=== PATIENT | female | born 1985 | race Caucasian/White ===

== ENCOUNTER 2019-09-09 13:42 | Emergency (ER) | payer BC ==
[~2019-09-09] VITALS: Ht 162.6 cm; Wt 87.0 kg
[2019-09-09] MEDS ORDERED: KETOROLAC 30 MG/1 ML ONE (14:15)
--- NOTE | 2019-09-09 14:25 | NUR ---
TO ED FROM HOME C/O NAUSEA/VOMIT/CHILLS/FLANK PAIN/INCR FREQUENCY. DENEIS HEMATURIA. A/O X4 GCS 15. ERMD IN ROOM FOR EVAL. LABS/UA SENT. MEDS PER OCT. CALL MACK IN REACH.
[2019-09-09] MEDS ORDERED: KETOROLAC 30 MG/1 ML IVPush ONE (14:30)
[2019-09-09] MEDS ORDERED: SODIUM CHLORIDE 0.9% 1,000ML IVBOLUS ONE (14:30)
[2019-09-09 14:32] LABS: BASOPHILS # (AUTO) 0.01 x10^3/uL (0-0.1); BASOPHILS % (AUTO) 0 % (0-1); EOSINOPHILS # (AUTO) 0.07 x10^3/uL (0-0.4); EOSINOPHILS % (AUTO) 1 % (1-7); LYMPHOCYTES # (AUTO) 1.76 x10^3/uL (1-3.4); LYMPHOCYTES % (AUTO) 16 % (22-44); MD NO; MEAN CORPUSCULAR HEMOGLOBIN 30.6 pg (27.0-34.8); MEAN CORPUSCULAR HGB CONC 33.6 g/dL (32.4-35.8); MEAN CORPUSCULAR VOLUME 91.1 fL (80-100); MEAN PLATELET VOLUME 7.4 fL (7.4-10.4); MONOCYTES % (AUTO) 9 % (2-9); NEUTROPHILS # (AUTO) 8.12 x10^3/uL (1.8-6.8); NEUTROPHILS % (AUTO) 74 % (42-75); PLATELET COUNT 208 x10^3/uL (130-400); RED BLOOD COUNT 4.63 x10^6/uL (3.82-5.3); RED CELL DISTRIBUTION WIDTH 13.1 % (9.6-15.2)
[2019-09-09 14:35] LABS: MICROSCOPIC AUTO
[2019-09-09 14:40] LABS: ALBUMIN 3.2 g/dL (3.4-5.0); ANION GAP 6 mmol/L (5-15); CALCIUM 8.3 mg/dL (8.5-10.1); CHLORIDE 108 mmol/L (98-107)
[2019-09-09 14:41] LABS: CULTURE INDICATED? YES
[2019-09-09 14:43] LABS: ALANINE AMINOTRANSFERASE 19 U/L (12-78); ALKALINE PHOSPHATASE 54 U/L (45-117); BILIRUBIN,TOTAL 0.4 mg/dL (0.2-1.0); CREATININE 0.93 mg/dL (0.55-1.02); TOTAL PROTEIN 7.4 g/dL (6.4-8.2)
[2019-09-09] MEDS ORDERED: CEFTRIAXONE PMX 1GM/50ML 50 ML ONE (14:50)
--- NOTE | 2019-09-09 14:55 | NUR ---
TASK RN: PT RESTING ON GURNEY. ESTEVES VSS. NO NEEDS REQUESTED AT THIS TIME.
[2019-09-09] MEDS ORDERED: CEFTRIAXONE PMX 1GM/50ML 50 ML IV ONE (15:00)
--- NOTE | 2019-09-09 16:01 | NUR ---
IVF/ABX INFUSED. NAD.
[2019-09-09 16:10] VITALS: BP 132/71
== END 2019-09-09 16:16 | disposition home or self-care (01) ==
LOC: ED 14:36
DX: N10 Acute pyelonephritis (principal)
CPT/HCPCS: 36415; 80053; 81001; 83690; 85025; 87077; 87086; 87186; 96365; 96375; 99283; J0696; J1885; J7030; 96361

== ENCOUNTER 2020-11-26 20:34 | Emergency (ER) | payer BC ==
[~2020-11-26] VITALS: Ht 162.6 cm; Wt 96.9 kg
[2020-11-26 20:47] VITALS: BP 147/92
--- NOTE | 2020-11-26 21:30 | NUR ---
PT REPORTS FALLING 2 DAYS AGO AND STILL HAS RIGHT WRIST PAIN. PT RESTING IN [place] AT THIS TIME, WCTM.
--- NOTE | 2020-11-26 22:03 | NUR ---
REPORT GIVEN TO JASON LOGAN.
--- NOTE | 2020-11-26 22:55 | NUR ---
Splint by EMT, pos csmtp distal to splint. Pt dc home with instruct, referral. To return to ER if worse or concerns.
== END 2020-11-26 23:19 ==
LOC: ED 22:11
DX: S63.641A Sprain of metacarpophalangeal joint of right thumb, initial encounter (principal); M79.89 Other specified soft tissue disorders; X58.XXXA Exposure to other specified factors, initial encounter; Y93.89 Activity, other specified; Y92.89 Other specified places as the place of occurrence of the external cause; Y99.8 Other external cause status
CPT/HCPCS: 29125; 99284